=== PATIENT | female | born 1975 | race Caucasian/White ===

== ENCOUNTER → 2017-02-19 | Outpatient (CLI) | payer OTHER ==
[~2017-02-19] MED LIST: NAPR1TAB9 PO
--- NOTE | 2017-02-19 11:34 | DIAGNOSTIC IMAGING REPORT ---
RIGHT FOOT 3 VIEWS CLINICAL HISTORY: Right foot pain. FINDINGS: 3 views of the right foot are obtained. Correlation is made with radiographs of the right heel dated 01/12/2014. The skeletal structures are well mineralized. No fracture is seen. There is a large plantar calcaneal enthesophyte. There is mild hallux valgus deformity. Mild spurring is seen along the medial aspect of the first metatarsophalangeal joint. The joint spaces of the foot are otherwise well-maintained. The overlying soft tissues are within normal limits. IMPRESSION: 1. No acute bony abnormality is identified. 2. Mild hallux valgus with spurring along the medial aspect of the first metatarsophalangeal joint. 3. Plantar heel spur. Electronically signed by: Ismael Mccabe M.D. 02/19/2017 11:33 AM Dictated Date/Time: 02/19/2017 11:30 AM
== END | disposition home or self-care (01) ==
LOC: C.RADBC 10:05
PROVIDERS: ATTEND Anesthesiology
DX: M79.671 Pain in right foot (principal); M77.31 Calcaneal spur, right foot

== ENCOUNTER → 2017-05-03 | Outpatient (CLI) | payer OTHER ==
--- NOTE | 2017-05-03 16:09 | MAMMOGRAPHY REPORT ---
BILATERAL FIRST EVER DIGITAL SCREENING MAMMOGRAM TOMOSYNTHESIS WITH CAD: 05/03/2017 CLINICAL HISTORY: Routine screening. Baseline exam. TECHNIQUE: Breast tomosynthesis in addition to standard 2D mammography was performed. Current study was also evaluated with a Computer Aided Detection (CAD) system. COMPARISON: No prior exams were available for comparison. BREAST COMPOSITION: There are scattered areas of fibroglandular density in both breasts. FINDINGS: There are asymmetries seen within the left upper outer quadrant, for which spot compressio n tomosynthesis views and possible breast ultrasound are recommended for further evaluation. The remainder of both breasts demonstrate no suspicious masses, calcifications, or areas of sfdc technical architect ural distortion. Scattered bilateral benign-appearing punctate calcifications are noted. IMPRESSION: ACR BI-RADS CATEGORY 0: INCOMPLETE EVALUATION: NEED ADDITIONAL IMAGING EVALUATION Left breast asymmetries, for which additional imaging evaluation is recommended. The patient will be called to schedule an appointment. Approximately 10% of breast cancers are not detected with mammography. A negative mammographic report should not delay biopsy if a clinically suggestive mass is present. Rosangela Meyer M.D. ah/:05/03/2017 15:56:46 Refinery Operator: Eusebio IRAHETA(Steve)(M), [facility] letter sent: Addl Imaging 0 BI-RADS Code: ACR BI-RADS Category 0: Incomplete Evaluation: Need Additional Imaging Evaluation
== END | disposition home or self-care (01) ==
LOC: C.MAMM 13:04
PROVIDERS: ATTEND Physician Assistant
DX: R92.8 Other abnormal and inconclusive findings on diagnostic imaging of breast (principal); N64.89 Other specified disorders of breast

== ENCOUNTER → 2017-05-15 | Outpatient (CLI) | payer OTHER ==
--- NOTE | 2017-05-16 14:19 | MAMMOGRAPHY REPORT ---
UNILATERAL LEFT DIGITAL DIAGNOSTIC MAMMOGRAM TOMOSYNTHESIS AND TARGETED LEFT ULTRASOUND: 05/15/2017 CLINICAL HISTORY: 42 year-old woman called back from baseline screening mammogram for asymmetries in the left upper outer quadrant. During diagnostic evaluation she reported she can feel prominent tiss ue in the 12:00 breast and is still able to express a small amount of milk since she weaned her young est child in October 2015. TECHNIQUE: Spot compression left CC and MLO tomosynthesis images were obtained. COMPARISON: Comparison is made to exam dated: 05/03/2017 mammogram - [facility]. BREAST COMPOSITION: The tissue of the left breast is almost entirely fatty. FINDINGS: Spot compression tomosynthesis views of the left breast demonstrate a focal asymmetry measu ring approximately 4 x 3 cm in the upper outer middle one third of the left breast. There is no asso ciated architectural distortion. No suspicious clustered microcalcifications are seen within the asy mmetry. A few scattered benign-appearing pontine microcalcifications are present in the superior lef t breast. Targeted ultrasound was performed in the upper outer quadrant of the left breast, with particular att ention to the 12:00 axis in the area of palpable tissue pointed out by the patient. Throughout the u pper outer quadrant particularly the 12:00, 1:00 and 2:00 axes, there are islands of dense glandular tissue, sonographically normal in appearance. These likely correlate with the mammographic focal asy mmetry and are benign. However, given that they were identified on a baseline mammogram, a short int erval follow-up left tomosynthesis mammogram and repeat targeted ultrasound is recommended to ensure stability in 6 months. IMPRESSION: ACR-BI-RADS CATEGORY 3: PROBABLY BENIGN, TARGETED ULTRASOUND ACR-BI-RADS CATEGORY 3: PRO BABLY BENIGN The focal asymmetry in the left upper outer middle one third of the breast most likely represents nor mal asymmetric fibroglandular tissue. However, given that this finding was seen on a baseline screen ing mammogram, a short interval follow-up left diagnostic mammogram and repeat ultrasound is recommen ded to ensure stability in 6 months. These results and recommendations were discussed with the patient at the time of the exam. Approximately 10% of breast cancers are not detected with mammography. A negative mammographic report should not delay biopsy if a clinically suggestive mass is present. Wendy Medellin M.D. ay/:05/15/2017 15:40:30 Public Relations Counselor: Eusebio Ritchie RT(Steve)(M), [facility] letter sent: Follow Up Recommended 3 BI-RADS Code: ACR-BI-RADS Category 3: Probably Benign Ultrasound BI-RADS: ACR-BI-RADS Category 3: Pr obably Benign
== END | disposition home or self-care (01) ==
LOC: C.MAMM 14:44
PROVIDERS: ATTEND Physician Assistant
DX: N64.89 Other specified disorders of breast (principal)

== ENCOUNTER → 2017-06-26 | Outpatient (CLI) | payer OTHER | END | disposition home or self-care (01) | LOC: C.PAPS 09:42 | PROVIDERS: ATTEND Obstetrics & Gynecology | DX: Z12.4 Encounter for screening for malignant neoplasm of cervix (principal) ==

== ENCOUNTER → 2017-07-21 | Outpatient (CLI) | payer OTHER ==
[2017-07-21 11:15] LABS: BLOOD UREA NITROGEN 17 mg/dl (7-18); BUN/CREATININE RATIO 21.7 (10-20); CALCIUM 8.5 mg/dl (8.5-10.1); CARBON DIOXIDE 29 mmol/L (21-32); CHLORIDE 105 mmol/L (98-107); CREATININE 0.78 mg/dl (0.60-1.20); GLUCOSE 80 mg/dl (70-99); SODIUM 139 mmol/L (136-145)
[2017-07-21 11:18] LABS: CHOLESTEROL 163 mg/dl (0-200); HDL CHOLESTEROL 55 mg/dl; LDL CHOLESTEROL CALCULATED 90 mg/dl; TRIGLYCERIDES 90 mg/dl (0-150); VERY LOW DENSITY LIPOPROT CALC 18 mg/dl
== END | disposition home or self-care (01) ==
LOC: C.LABBC 08:29
PROVIDERS: ATTEND Physician Assistant Medical
DX: Z00.00 Encounter for general adult medical examination without abnormal findings (principal); N94.6 Dysmenorrhea, unspecified

== ENCOUNTER 2017-08-29 12:09 | Emergency (ER) | payer OTHER ==
[~2017-08-29] VITALS: Ht 170.2 cm; Wt 87.9 kg
[2017-08-29 12:11] VITALS: BP 123/80; PULSE 71; TEMP 36.4; O2SAT 98; Ht 170.2 cm; Wt 87.9 kg
--- NOTE | 2017-08-30 10:11 | EMERGENCY ROOM VISIT NOTE ---
ED Visit Note First contact with patient: 12:15 Chief Complaint: Needlestick injury. 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 Patient reports approximately 10:30 AM this morning she was doing a spinal tap and while replacing the stylette she sustained a needlestick injury to the left middle finger. Immediately after the injury she cleaned her wound with antibacterial soap and water. Currently she has no complaints including pain in the area of the injury. Review of Systems: As noted above in history of present illness. Past Medical History: Status post section, D&C, wisdom teeth extraction and tonsillectomy/adenoidectomy. Current Medications: Aleve. Allergies to Medications: Patient denies. Social History: Patient is currently employed; she feels safe in her home environment; she denies tobacco and alcohol use. Tetanus Immunization Status: Patient reports up-to-date. Physical Examination: Vital Signs: Date Time Temp Pulse Resp B/P (MAP) Pulse Ox O2 Delivery O2 Flow Rate FiO2 08/29/17 12:11 36.4 71 18 123/80 98 Room Air GENERAL: 42-year-old female in no acute distress, nontoxic-appearing, afebrile and hemodynamically stable. NEUROLOGICAL: Awake, alert and oriented to person, place and time. Answering questions appropriately and following commands. SKIN: Warm, dry and pink. Left Middle Finger: Single puncture wound to the lateral aspect of the distal phalanx. No active bleeding. ED Course: Patient is assessed as noted above. Patient's medication list was reviewed. Patient was given appropriate counseling and educating about needlestick injuries and blood-borne pathogens. Laboratory testing was performed. Patient was educated about today's findings and instructed on her treatment plan ; she verbalized understanding and agreement with this plan. Clinical Impression: Needlestick injury. Body fluid exposure. Disposition: A shunt discharged home in stable condition; prior to departure she was reassessed and subjectively reported she was feeling well and was still not experiencing any pain. Plan: Comfort measures, wound care and signs of infection were discussed with the patient. Patient was encouraged to follow-up with [facility] for her testing results. Patient was encouraged to follow-up with [facility] or return to the ED for any signs of infection or any new/concerning symptoms.
== END 2017-08-29 12:36 | disposition home or self-care (01) ==
LOC: C.EDB 12:10 → C.EDD 12:36
DX: S61.233A Puncture wound without foreign body of left middle finger without damage to nail, initial encounter (principal); W46.1XXA Contact with contaminated hypodermic needle, initial encounter; Y99.0 Civilian activity done for income or pay; Z77.21 Contact with and (suspected) exposure to potentially hazardous body fluids

== ENCOUNTER → 2017-09-26 | Outpatient (CLI) | payer OTHER ==
[~2017-09-26] MED LIST changes: +LEVO19.5; +topical cream
--- NOTE | 2017-09-26 12:28 | DIAGNOSTIC IMAGING REPORT ---
C-SPINE ROUTINE 4 OR 5 VIEWS HISTORY: Pain HEADACHES COMPARISON: None. FINDINGS: The cervical spine is visualized from C1 through the superior endplate of T1. There is no fracture. No subluxation. Disc spaces are preserved. Prevertebral soft tissues and the atlantodens interval are intact. IMPRESSION: No fracture or subluxation within the cervical spine. The above report was generated using voice recognition software. It may contain grammatical, syntax or spelling errors. Electronically signed by: Neo Rodriguez M.D. 09/26/2017 12:26 PM Dictated Date/Time: 09/26/2017 12:26 PM
== END | disposition home or self-care (01) ==
LOC: C.RADBC 12:00
PROVIDERS: ATTEND Physician Assistant
DX: M54.2 Cervicalgia (principal); G44.89 Other headache syndrome

== ENCOUNTER → 2017-11-15 | Outpatient (CLI) | payer OTHER ==
--- NOTE | 2017-11-15 15:15 | MAMMOGRAPHY REPORT ---
UNILATERAL LEFT DIGITAL DIAGNOSTIC MAMMOGRAM TOMOSYNTHESIS WITH CAD: 11/15/2017 CLINICAL HISTORY: Short interval follow-up of left breast asymmetry. The patient reports no new lump s or other new complaints. TECHNIQUE: Breast tomosynthesis in addition to standard 2D mammography was performed. Current study was also evaluated with a Computer Aided Detection (CAD) system. Left CC and MLO 2D and tomosynthesi s images were obtained. COMPARISON: Comparison is made to exams dated: 05/15/2017 ultrasound, 05/15/2017 mammogram, and 017 mammogram - [facility]. BREAST COMPOSITION: There are scattered areas of fibroglandular density in the left breast. FINDINGS: There are no suspicious masses, calcifications, or areas of architectural distortion noted in the left breast. There has been no significant interval change compared to prior exams. Asymmetr y in the left superior breast on the MLO view is not significantly changed and has the appearance of normal fibroglandular tissue on the tomosynthesis images. Scattered benign-appearing left breast rosas cifications are not significantly changed. IMPRESSION: ACR BI-RADS CATEGORY 2: BENIGN There is no mammographic evidence of malignancy in the left breast. Return to annual mammogram screen ing schedule is recommended, due April/May 2018. The patient has been verbally notified of th e results. Approximately 10% of breast cancers are not detected with mammography. A negative mammographic report should not delay biopsy if a clinically suggestive mass is present. Rosangela Meyer M.D. /:11/15/2017 09:09:19 Culinary Chef: Nguyen IRAHETA(Steve)(Karsten), [facility] letter sent: Normal 1/2 BI-RADS Code: ACR BI-RADS Category 2: Benign
== END | disposition home or self-care (01) ==
LOC: C.MAMM 08:39
PROVIDERS: ATTEND Physician Assistant
DX: Z09 Encounter for follow-up examination after completed treatment for conditions other than malignant neoplasm (principal)

== ENCOUNTER → 2017-12-13 | Outpatient (CLI) | payer OTHER | END | disposition home or self-care (01) | LOC: C.LAB 09:26 | PROVIDERS: ATTEND Physician Assistant Medical | DX: Z00.00 Encounter for general adult medical examination without abnormal findings (principal) ==

== ENCOUNTER 2018-03-31 20:55 | Emergency (ER) | payer OTHER ==
[~2018-03-31] VITALS: Ht 170.2 cm; Wt 85.2 kg
[2018-03-31 20:58] VITALS: TEMP 36.8; Ht 170.2 cm; Wt 85.2 kg
[2018-03-31] MEDS ORDERED: CLBPO15 TOP (21:10)
[2018-03-31] MEDS ORDERED: LIDOCAINE 1% BUFFERED INJ 5 ML VIAL INFIL ONE (21:15)
--- NOTE | 2018-03-31 21:36 | EMERGENCY ROOM VISIT NOTE ---
History First contact with patient: 21:02 Chief Complaint: LACERATION/CUT (NON-SUTURE) Stated Complaint: FINGER LACERATION Nursing Triage Summary: cut right fifth finger on a kitchen knife at 1700. History of Present Illness The patient is a 42 year old female who presents to the Emergency Room with complaints of a laceration to her right fifth finger. She reports that 4 hours ago, she was slicing a role when the knife cut through the role and lacerated her finger. She attempted to Dermabond the wound but states it was still breaking open and bleeding. She is left-hand dominant. She does report some numbness to the finger but states that strength has been intact and she has normal range of motion. Her tetanus is up-to-date. She rates her discomfort a 4/10. Review of Systems A complete 6 point review of systems was reviewed with the patient with pertinent positives and negatives as per history of present illness. All else were negative. Past Medical/Surgical History Medical Problems: (1) Atopic dermatitis (2) Breech presentation (3) section Surgical Problems: (1) H/O tubal ligation (2) H/O wisdom tooth extraction (3) History of section (4) History of dilatation and curettage Social History Problems: (1) IUD (intrauterine device) in place Social History Smoking Status: Never Smoker Marital Status: Occupation Status: employed Current/Historical Medications Scheduled PRN Clobetasol Propionate (Clobetasol Propionate), 1 APPLN TOP BID PRN for AFFECTED SKIN Naproxen (Aleve), 220 MG PO BID PRN for Pain Miscellaneous Medications Levonorgestrel (Iud) (Kyleena) Physical Exam Vital Signs Date Time Temp Pulse Resp B/P (MAP) Pulse Ox O2 Delivery O2 Flow Rate FiO2 03/31/18 20:58 36.8 77 18 138/79 98 Room Air Physical Exam VITALS: Vitals are noted on the nurse's note and reviewed by myself. Vital signs stable. GENERAL: This is a 42-year-old female, in no acute distress, nondiaphoretic, well-developed well-nourished. SKIN: There is a 1.5 cm laceration to the palmar aspect of the right fifth digit , over the area of the PIP. No tendons or deep structures seen in the base of the wound. Mild bleeding. Capillary refill within 3 seconds. MUSCULOSKELETAL: Full range of motion of the right fifth finger, 5/5 strength to both flexion and extension. NEURO: Patient was alert and oriented to person place and time. Decreased sensation noted over the distal aspect of the right fifth finger. Medical Decision & Procedures Procedure Verbal consent was obtained to perform the procedure. Using sterile technique the wound was cleaned with Betadine. The area was sterilely draped. 1 ml of 1 % buffered lidocaine was used to anesthetize the laceration. Once the patient was anesthetized, the wound was copiously irrigated under pressure with sterile saline. The wound was explored and there were no deep structures injured such as tendons, bone, or significant blood vessels. The laceration was repaired using 3 simple interrupted 5-0 nylon sutures with the wound edges being well approximated. The patient tolerated the procedure well. Hemostasis was achieved. The area was cleaned with sterile saline and dressed with bacitracin ointment and bandage. Medical Decision The patient was evaluated as above. Laceration repair was performed as noted in the procedure section. Patient does note some decreased sensation, likely secondary to superficial nerve injury. She was advised to follow-up with orthopedic hand surgery if this persists. 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 Suture care instructions discussed. She verbalized understanding of my assessment and treatment plan and was discharged home in good condition. Medication Reconcilliation Current Medication List: was personally reviewed by me Blood Pressure Screening Patient's blood pressure: Normal blood pressure Impression Primary Impression: Laceration of finger Departure Information Dispostion Home / Self-Care Condition GOOD Referrals Noah Perez M.D. (PCP) Patient Instructions My [facility] [address] Additional Instructions You have received 3 sutures on your finger. These sutures are NOT dissolvable and WILL need to be removed by a health care provider in 8-10 days. You can return to the Emergency Department or contact your Primary Care Provider to have the sutures removed. Proper wound care is essential for adequate wound healing and infection prevention. You can shower and clean the wound with soap and water. Do not scour over the wound, pat dry with a towel. Do not submerse the wound (i.e. bathe or dish wash) until the sutures have been removed. You can use an antibiotic ointment with a dressing over the wound for the next 3-4 days. After this time you may leave the wound dry and open to the air. If crust develops over the wound you can use a Q-tip to apply a 1:1 peroxide:water solution to clean the wound. Look for signs of infection of the wound including: increased pain, swelling, foul discharge, streaking, or increased temperature. If any of these are noticed you should return to the Emergency Department for further assessment and treatment. As with any laceration you may have received nerve damage to the surrounding tissues. This damage may or may not be permanent. You should keep the area covered with sunscreen for the first 6 months to 1 year when at risk for exposure to help minimize scarring. You can also use scar reducing creams or Vitamin E oil to help minimize scarring. For pain control, you can use the following okdx-wor-tsyfwlw medicines (if >12 yo): - Regular strength (325mg/tab) Tylenol (acetaminophen) 2 tabs every 4-6 hours as needed. Do not exceed 12 tablets in a 24 hour period. Avoid taking more than 4 grams (4000 mg) of Tylenol per day. This includes any other sources of acetaminophen you may take on a regular basis. - Regular strength (200 mg/tab) Advil (ibuprofen) 1-2 tabs every 4-6 hours as needed. Do not exceed a dose of 3200 mg per day. Return to the emergency department if your symptoms worsen despite treatment course outlined above. Problem Qualifiers Primary Impression: Laceration of finger Encounter type: initial encounter Finger: little finger Damage to nail status: without damage Foreign body presence: without foreign body Laterality: right Qualified Codes: S61.216A - Laceration without foreign body of right little finger without damage to nail, initial encounter
[2018-03-31 21:52] VITALS: BP 111/63; PULSE 68; O2SAT 97
== END 2018-03-31 21:54 | disposition home or self-care (01) ==
LOC: C.EDB 20:57 → C.EDD 21:54
DX: S61.216A Laceration without foreign body of right little finger without damage to nail, initial encounter (principal); W26.0XXA Contact with knife, initial encounter